=== PATIENT | female | born 1935 | race Caucasian/White ===

== ENCOUNTER 2018-06-22 14:03 | Outpatient (CLI) | payer OTHER ==
[2018-06-24] MEDS ORDERED: SYNTHROID75 MCG PO (07:32)
[2018-06-24] MEDS ORDERED: FENOFIBRATE134 MG PO (07:32)
[2018-06-24] MEDS ORDERED: CLONIDINE HCL0.1 M1 PO (07:33)
[2018-06-24] MEDS ORDERED: ATACAND32 MG PO (07:33)
[2018-06-24] MEDS ORDERED: CARAFATE1 GM PO (07:33)
[2018-06-24] MEDS ORDERED: METROPOLOL PO ×2 (07:34→07:36)
== END 2018-06-22 14:11 | disposition home or self-care (01) ==
LOC: RAD 14:03
DX: K64.2 Third degree hemorrhoids (principal); K92.2 Gastrointestinal hemorrhage, unspecified

== ENCOUNTER 2018-07-01 06:00 | Day surgery (SDC) | payer OTHER ==
[~2018-07-01 06:00] MED LIST: ATACAND32 MG PO; CARAFATE1 GM PO; CLONIDINE HCL0.1 M1 PO; FENOFIBRATE134 MG PO; METROPOLOL PO; SYNTHROID75 MCG PO
== END 2018-07-01 12:40 | disposition home or self-care (01) ==
LOC: CIR.AMB 06:00
DX: K64.8 Other hemorrhoids (principal)

== ENCOUNTER 2020-07-31 07:38 | Outpatient (CLI) | payer OTHER | END 2020-07-31 15:00 | disposition home or self-care (01) | LOC: PPH VACUNA 07:38 | PROVIDERS: ATTEND Emergency Medicine Pediatric Emergency Medicine | DX: Z23 Encounter for immunization (principal) ==

== ENCOUNTER 2020-08-16 09:23 | Outpatient (CLI) | payer OTHER | END 2020-08-16 09:39 | disposition home or self-care (01) | LOC: RX STUDY 09:23 | PROVIDERS: ATTEND Internal Medicine Gastroenterology | DX: K21.9 Gastro-esophageal reflux disease without esophagitis (principal); K44.9 Diaphragmatic hernia without obstruction or gangrene; R13.14 Dysphagia, pharyngoesophageal phase ==

== ENCOUNTER 2020-08-21 14:17 | Outpatient (CLI) | payer OTHER | END 2020-08-21 14:18 | disposition home or self-care (01) | LOC: PPH VACUNA 14:17 | PROVIDERS: ATTEND Emergency Medicine Pediatric Emergency Medicine | DX: Z23 Encounter for immunization (principal) ==

== ENCOUNTER 2020-11-24 09:43 | Outpatient (CLI) | payer OTHER ==
[2021-01-05] MEDS ORDERED: LYRICA50 MG PO (10:27)
== END 2020-11-24 09:51 | disposition home or self-care (01) ==
LOC: TOM 09:43
PROVIDERS: ATTEND Internal Medicine Endocrinology, Diabetes & Metabolism
DX: M51.36 Other intervertebral disc degeneration, lumbar region (principal)

== ENCOUNTER 2020-11-24 10:49 | Outpatient (CLI) | payer OTHER | END 2020-11-24 10:50 | disposition home or self-care (01) | LOC: NUCLEAR 10:49 | PROVIDERS: ATTEND Internal Medicine Endocrinology, Diabetes & Metabolism | DX: M81.8 Other osteoporosis without current pathological fracture (principal) ==

== ENCOUNTER 2021-01-12 09:43 | Outpatient (CLI) | payer OTHER ==
[~2021-01-12 09:43] MED LIST changes: +LYRICA50 MG PO
[2021-01-26] MEDS ORDERED: LYRICA50 MG PO (08:16)
== END 2021-01-12 10:01 | disposition home or self-care (01) ==
LOC: RAD 09:43 → MRI 10:45
PROVIDERS: ATTEND Physical Medicine & Rehabilitation
DX: N32.3 Diverticulum of bladder (principal); E03.9 Hypothyroidism, unspecified; I10 Essential (primary) hypertension; C67.9 Malignant neoplasm of bladder, unspecified; N28.1 Cyst of kidney, acquired; N39.0 Urinary tract infection, site not specified; R39.15 Urgency of urination; R94.4 Abnormal results of kidney function studies; R31.9 Hematuria, unspecified

== ENCOUNTER 2021-02-07 11:55 | Outpatient (CLI) | payer OTHER | END 2021-02-07 12:02 | disposition home or self-care (01) | LOC: SONOGRAMA 11:55 → MAMO-SONO 12:15 | PROVIDERS: ATTEND Physical Medicine & Rehabilitation | DX: M71.22 Synovial cyst of popliteal space [Baker], left knee (principal) ==

== ENCOUNTER 2021-04-23 16:45 | Outpatient (CLI) | payer OTHER | END 2021-04-23 16:50 | disposition home or self-care (01) | LOC: PPH VACUNA 16:45 | PROVIDERS: ATTEND Emergency Medicine Pediatric Emergency Medicine | DX: Z23 Encounter for immunization (principal) ==

== ENCOUNTER 2021-10-29 08:00 | Outpatient (CLI) | payer OTHER | END 2021-10-29 08:30 | disposition home or self-care (01) | LOC: PPH VACUNA 08:00 | PROVIDERS: ATTEND Emergency Medicine Pediatric Emergency Medicine | DX: Z23 Encounter for immunization (principal) ==

== ENCOUNTER 2022-02-26 07:12 | Outpatient (CLI) | payer OTHER | END 2022-02-26 07:17 | disposition home or self-care (01) | LOC: TOM 07:12 | DX: C67.9 Malignant neoplasm of bladder, unspecified (principal); N28.1 Cyst of kidney, acquired; R39.15 Urgency of urination; R94.4 Abnormal results of kidney function studies; R31.9 Hematuria, unspecified ==

== ENCOUNTER 2022-04-09 08:35 | Outpatient (CLI) | payer OTHER | END 2022-04-09 08:45 | disposition home or self-care (01) | LOC: PPH VACUNA 08:35 | PROVIDERS: ATTEND Emergency Medicine Pediatric Emergency Medicine | DX: Z23 Encounter for immunization (principal) ==

== ENCOUNTER 2022-04-19 07:48 | Outpatient (CLI) | payer OTHER | END 2022-04-19 08:00 | disposition home or self-care (01) | LOC: SONOGRAMA 07:48 | PROVIDERS: ATTEND Internal Medicine Endocrinology, Diabetes & Metabolism | DX: M51.17 Intervertebral disc disorders with radiculopathy, lumbosacral region (principal); E04.1 Nontoxic single thyroid nodule ==

== ENCOUNTER 2022-09-04 09:12 | Outpatient (CLI) | payer OTHER | END 2022-09-04 09:15 | disposition home or self-care (01) | LOC: RAD 09:12 | PROVIDERS: ATTEND Orthopaedic Surgery | DX: M48.061 Spinal stenosis, lumbar region without neurogenic claudication (principal); M54.16 Radiculopathy, lumbar region ==

== ENCOUNTER 2024-04-07 08:00 | Outpatient (CLI) | payer OTHER ==
[2024-04-07 08:23] LABS: HEMATOCRIT 35.5 % (36.0-45.00); HEMOGLOBIN 11.8 g/dL (12.0-15.00); MEAN CELL VOLUME 85.9 fL (80.00-100.00); MEAN CORPUSCULAR HEMOGLOBIN 28.7 pg (27.00-32.0); MEAN CORPUSCULAR HGB CONC 33.4 g/dl (32.0-36.0); PLATELET COUNT 201 K/uL (150-450); RED BLOOD COUNT 4.13 M/uL (4.00-6.00); RED CELL DISTRIBUTION WIDTH 13.3 % (11.5-14.5)
== END 2024-04-07 10:31 | disposition home or self-care (01) ==
LOC: LAB 08:00
PROVIDERS: ATTEND Internal Medicine Pulmonary Disease
DX: J11.1 Influenza due to unidentified influenza virus with other respiratory manifestations (principal); Z20.822 Contact with and (suspected) exposure to COVID-19; R05.9 Cough, unspecified; R06.02 Shortness of breath; R50.9 Fever, unspecified